=== PATIENT | female | born 1960 | race Two or more races ===

== ENCOUNTER 2023-01-30 01:51 | Emergency (ER) | payer OTHER ==
[~2023-01-30] VITALS: Ht 154.9 cm; Wt 85.0 kg
[2023-01-30] MEDS ORDERED: OMEPRAZOLE20 MG PO (02:07)
[2023-01-30] MEDS ORDERED: DULOXETINE HCL60 MG PO (02:08)
[2023-01-30] MEDS ORDERED: OZEMPIC1 MG/0.71 SUB-Q (02:09)
[2023-01-30] MEDS ORDERED: LISINOPRIL10 MG PO (02:10)
[2023-01-30] MEDS ORDERED: HYDROCHLOROTHIA50 MG PO (02:10)
[2023-01-30] MEDS ORDERED: METFORMIN HCL1000 M1 PO (02:11)
[2023-01-30 02:46] LABS: BASOPHILS 0.9 % (0-2); EOSINOPHILS 2.5 % (0-6); HEMATOCRIT 40.5 % (35.0-50.0); HEMOGLOBIN 13.2 g/dL (12.0-18.0); MCH 28.5 (27-36); MCHC 32.6 g/dl (30-36); MCV 87.6 fl (81-99); MONOCYTES 7.3 % (0-12); NEUTROPHILS 56.3 % (39-80); PLATELET COUNT 419 K/uL (140-440); RBC 4.63 M/ul (4.3-5.7)
[2023-01-30 03:04] LABS: ALBUMIN 3.3 g/dL (3.4-5.0); ALBUMIN/GLOBULIN RATIO 0.79 (1.1-2.4); BILIRUBIN, TOTAL 0.6 ng/dL (0.2-1.0); BUN/CREATININE RATIO 13.33 (6.0-28.6); CALCIUM 8.7 mg/dL (8.5-10.1); CREATININE, SERUM 1.05 mg/dL (0.55-1.02); PROTEIN, TOTAL 7.5 g/dL (6.4-8.2)
[2023-01-30] MEDS ORDERED: AMOX TR-K CLV1 EAC1 PO (04:11)
[2023-01-30] MEDS ORDERED: KETOROLAC TROME10 MG PO (04:12)
[2023-01-30 04:58] VITALS: BP 149/89
== END 2023-01-30 05:00 | disposition home or self-care (01) ==
LOC: ED 01:51
PROVIDERS: Family Medicine
DX: S02.609D Fracture of mandible, unspecified, subsequent encounter for fracture with routine healing (principal); V49.9XXD Car occupant (driver) (passenger) injured in unspecified traffic accident, subsequent encounter; I10 Essential (primary) hypertension; J45.909 Unspecified asthma, uncomplicated; E11.9 Type 2 diabetes mellitus without complications; E66.9 Obesity, unspecified; Z88.5 Allergy status to narcotic agent; Z79.899 Other long term (current) drug therapy; Z79.84 Long term (current) use of oral hypoglycemic drugs
CPT/HCPCS: 36415; 70491; 80053; 85025; 96374; 99283-25; A9270; J1885; J7121; Q9967